=== PATIENT | male | born 1965 | race Caucasian/White ===

== ENCOUNTER 2019-01-18 16:45 | Inpatient (IN) | payer MEDICAID, OTHER ==
[~2019-01-18] VITALS: Ht 172.7 cm; Wt 68.3 kg
[2019-01-18] MEDS ORDERED: ASPIRIN 81 MG TABLET CHEW ONE (17:09)
--- NOTE | 2019-01-18 17:25 | NUR ---
Report from EDMUNDO Conrad. Patient resting comfortably. No needs.
[2019-01-18] MEDS ORDERED: ASPIRIN 81 MG TABLET CHEW PO ONE (17:30)
[2019-01-18 17:49] LABS: MEAN CORPUSCULAR HEMOGLOBIN 32.4 pg (27.5-34.5); MEAN CORPUSCULAR HGB CONC 34.1 g/dL (33.2-36.2); MEAN CORPUSCULAR VOLUME 94.8 fL (81-97); MEAN PLATELET VOLUME 7.5 fL (7.4-10.4); PLATELET COUNT 237 x10^3/uL (130-400); RED BLOOD COUNT 4.07 x10^6/uL (4.38-5.82); RED CELL DISTRIBUTION WIDTH 14.7 % (9.4-14.8)
[2019-01-18] MEDS ORDERED: KETOROLAC 30 MG/1 ML ONE (17:51)
[2019-01-18 17:56] LABS: ALANINE AMINOTRANSFERASE 40 U/L (12-78); ALBUMIN 2.5 g/dL (3.4-5.0); ANION GAP 8 mmol/L (5-15); CALCIUM 8.2 mg/dL (8.5-10.1); CHLORIDE 98 mmol/L (98-107); CREATININE 0.77 mg/dL (0.7-1.3)
[2019-01-18 18:00] LABS: ALKALINE PHOSPHATASE 117 U/L (45-117); BILIRUBIN,TOTAL 2.1 mg/dL (0.2-1.0); TOTAL PROTEIN 6.9 g/dL (6.4-8.2); TROPONIN I < 0.015 ng/mL (0.000-0.045)
[2019-01-18] MEDS ORDERED: SODIUM CHLORIDE 0.9% 1,000ML IVBOLUS ONE (18:00)
[2019-01-18] MEDS ORDERED: AZITHROMYCIN 500 MG in SODIUM CHLORIDE 0.9% 250 ML IV ONE (18:00)
[2019-01-18] MEDS ORDERED: KETOROLAC 30 MG/1 ML IM ONE (18:00)
[2019-01-18] MEDS ORDERED: CEFTRIAXONE PMX 1GM/50ML 50 ML IVPB ONE (18:00)
[2019-01-18] MEDS ORDERED: KETOROLAC 30 MG/1 ML IVPush ONE (18:00)
--- NOTE | 2019-01-18 18:00 | NUR ---
C/O pain. Toradol IM admin.
[2019-01-18 18:19] LABS: MD YES
[2019-01-18 18:22] LABS: BAND#(MANUAL) 2.96 x10^3/uL; BANDS%(MANUAL) 11 % (0-7); LYMPH#(MANUAL) 1.61 x10^3/uL (1-3.4); LYMPHS% (MANUAL) 6 % (22-44); MONOS#(MANUAL) 1.61 x10^3/uL (0.3-2.7); MONOS% (MANUAL) 6 % (2-9); SEG#(MANUAL) 20.71 x10^3/uL (1.8-6.8); SEGS% (MANUAL) 77 % (42-75)
[2019-01-18 18:23] LABS: <PLATELET ESTIMATE> ADEQUATE; POLYCHROMASIA 1+; TOXIC GRAN 1+
[2019-01-18 18:24] LABS: <PLT MORPHOLOGY> NORMAL PLT MORPH
[2019-01-18] MEDS ORDERED: CEFTRIAXONE PMX 1GM/50ML 50 ML ONE (18:29)
[2019-01-18] MEDS ORDERED: hydrALAzine 20 MG/ML, 1ML IVPush PRN (19:00)
[2019-01-18] MEDS: ENOXAPARIN 40 MG/0.4 ML SQ SCH ×2 (19:00→21:18)
[2019-01-18] MEDS ORDERED: CEFTRIAXONE PMX 2GM/50ML 50 ML IV SCH (19:00)
[2019-01-18] MEDS ORDERED: POTASSIUM CHLORIDE 20 MEQ TAB.ER.PRT PO ONE ×2 (19:00→22:00)
--- NOTE | 2019-01-18 19:05 | NUR ---
David conde. Plan is for admit. Awaiting room assignment.
--- NOTE | 2019-01-18 19:28 | NUR ---
Report to EDMUNDO Paredes.
[2019-01-18 20:02] VITALS: BP 106/70
[2019-01-18] MEDS ORDERED: CEFTRIAXONE PMX 1GM/50ML 50 ML IV ONE (21:00)
[2019-01-18] MEDS: ACETAMINOPHEN 325 MG TABLET PO PRN (21:17)
[2019-01-18] MEDS: SODIUM CHLORIDE 0.9% 1,000 ML IV SCH (21:20)
[2019-01-19 01:27] VITALS: BP 112/72
[2019-01-19 05:30] LABS: MEAN CORPUSCULAR HEMOGLOBIN 32.1 pg (27.5-34.5); MEAN CORPUSCULAR HGB CONC 33.3 g/dL (33.2-36.2); MEAN CORPUSCULAR VOLUME 96.6 fL (81-97); MEAN PLATELET VOLUME 7.8 fL (7.4-10.4); PLATELET COUNT 231 x10^3/uL (130-400); RED BLOOD COUNT 4.01 x10^6/uL (4.38-5.82); RED CELL DISTRIBUTION WIDTH 14.6 % (9.4-14.8)
[2019-01-19] MEDS: SODIUM CHLORIDE 0.9% 1,000 ML IV SCH ×2 (05:35→15:45)
[2019-01-19 05:55] LABS: ALANINE AMINOTRANSFERASE 29 U/L (12-78); ALBUMIN 1.9 g/dL (3.4-5.0); ANION GAP 8 mmol/L (5-15); CALCIUM 7.8 mg/dL (8.5-10.1); CHLORIDE 109 mmol/L (98-107); CREATININE 0.82 mg/dL (0.7-1.3)
[2019-01-19 05:58] LABS: ALKALINE PHOSPHATASE 127 U/L (45-117); BILIRUBIN,TOTAL 1.7 mg/dL (0.2-1.0); TOTAL PROTEIN 5.8 g/dL (6.4-8.2)
[2019-01-19 06:04] LABS: MD YES
[2019-01-19 06:05] LABS: BAND#(MANUAL) 0.71 x10^3/uL; BANDS%(MANUAL) 3 % (0-7); LYMPH#(MANUAL) 0.95 x10^3/uL (1-3.4); LYMPHS% (MANUAL) 4 % (22-44); MONOS#(MANUAL) 0.71 x10^3/uL (0.3-2.7); MONOS% (MANUAL) 3 % (2-9); SEG#(MANUAL) 21.33 x10^3/uL (1.8-6.8); SEGS% (MANUAL) 90 % (42-75)
[2019-01-19 06:06] LABS: <RBC MORPHOLOGY> NORMAL; TOXIC GRAN 1+
[2019-01-19 06:07] LABS: <PLATELET ESTIMATE> ADEQUATE; <PLT MORPHOLOGY> NORMAL PLT MORPH
[2019-01-19 07:05] VITALS: BP 103/66
[2019-01-19] MEDS: AZITHROMYCIN 250 MG TABLET PO SCH (09:42)
[2019-01-19] MEDS: ACETAMINOPHEN 325 MG TABLET PO PRN (09:42)
[2019-01-19 16:19] VITALS: BP 119/71
[2019-01-19] MEDS: FAMOTIDINE 20 MG TABLET PO SCH ×2 (17:43→21:31)
[2019-01-19] MEDS: CEFTRIAXONE PMX 2GM/50ML 50 ML IV SCH (17:46)
[2019-01-19] MEDS ORDERED: POTASSIUM CHLORIDE 40 MEQ in SODIUM CHLORIDE 0.9% 500 ML IV ONE (18:00)
[2019-01-19] MEDS ORDERED: ALUMINUM/MAG/SIMETHICONE 30 ML UDC PO ONE (18:00)
[2019-01-19] MEDS: NICOTINE 14MG/24 HR PATCH.TD24 TD SCH (18:12)
[2019-01-19] MEDS: ENOXAPARIN 40 MG/0.4 ML SQ SCH (19:00)
[2019-01-19 20:21] VITALS: BP 109/70
[2019-01-20 01:35] VITALS: BP 125/77
[2019-01-20 04:14] LABS: BASOPHILS # (AUTO) 0.02 x10^3/uL (0-0.1); BASOPHILS % (AUTO) 0 % (0-1); EOSINOPHILS # (AUTO) 0.06 x10^3/uL (0-0.4); EOSINOPHILS % (AUTO) 0 % (1-7); LYMPHOCYTES # (AUTO) 1.46 x10^3/uL (1-3.4); LYMPHOCYTES % (AUTO) 8 % (22-44); MD NO; MEAN CORPUSCULAR HEMOGLOBIN 31.5 pg (27.5-34.5); MEAN CORPUSCULAR HGB CONC 33.2 g/dL (33.2-36.2); MEAN CORPUSCULAR VOLUME 94.9 fL (81-97); MONOCYTES # (AUTO) 0.82 x10^3/uL (0.2-0.8); MONOCYTES % (AUTO) 5 % (2-9); NEUTROPHILS % (AUTO) 87 % (42-75); PLATELET COUNT 262 x10^3/uL (130-400); RED BLOOD COUNT 3.92 x10^6/uL (4.38-5.82); RED CELL DISTRIBUTION WIDTH 15.4 % (9.4-14.8)
[2019-01-20 04:32] LABS: CALCIUM 7.6 mg/dL (8.5-10.1); CHLORIDE 108 mmol/L (98-107)
[2019-01-20 04:35] LABS: ANION GAP 8 mmol/L (5-15); CREATININE 0.75 mg/dL (0.7-1.3)
[2019-01-20 08:27] VITALS: BP 125/73
[2019-01-20] MEDS: AZITHROMYCIN 250 MG TABLET PO SCH (10:05)
[2019-01-20] MEDS: SODIUM CHLORIDE 0.9% 1,000 ML IV SCH (10:05)
[2019-01-20] MEDS: FAMOTIDINE 20 MG TABLET PO SCH ×2 (10:05→20:00)
[2019-01-20] MEDS ORDERED: POTASSIUM CHLORIDE 40 MEQ in SODIUM CHLORIDE 0.9% 500 ML IV ONE (12:30)
[2019-01-20 15:50] VITALS: BP 122/74
[2019-01-20] MEDS: POTASSIUM CHLORIDE 20 MEQ TAB.ER.PRT PO SCH (17:26)
[2019-01-20] MEDS: ENOXAPARIN 40 MG/0.4 ML SQ SCH (17:35)
[2019-01-20] MEDS: NICOTINE 14MG/24 HR PATCH.TD24 TD SCH (17:43)
[2019-01-20 19:48] VITALS: BP 131/75
[2019-01-20] MEDS: CEFTRIAXONE PMX 2GM/50ML 50 ML IV SCH (19:55)
[2019-01-21 02:52] VITALS: BP 127/72
[2019-01-21 08:09] VITALS: BP 117/63
[2019-01-21] MEDS: POTASSIUM CHLORIDE 20 MEQ TAB.ER.PRT PO SCH ×2 (08:56→17:20)
[2019-01-21] MEDS: FAMOTIDINE 20 MG TABLET PO SCH ×2 (08:56→20:47)
[2019-01-21] MEDS: AZITHROMYCIN 250 MG TABLET PO SCH (08:57)
[2019-01-21 15:58] VITALS: BP 132/74
[2019-01-21] MEDS: NICOTINE 14MG/24 HR PATCH.TD24 TD SCH (17:20)
[2019-01-21] MEDS ORDERED: OMNIPAQUE 350 MG/ML, 100ML BOTTLE ONE (17:44)
[2019-01-21] MEDS: ENOXAPARIN 40 MG/0.4 ML SQ SCH (19:00)
[2019-01-21 19:35] VITALS: BP 130/76
[2019-01-21] MEDS: CEFTRIAXONE PMX 2GM/50ML 50 ML IV SCH (20:46)
[2019-01-22 01:06] VITALS: BP 122/78
[2019-01-22 06:32] LABS: MEAN CORPUSCULAR HGB CONC 33.9 g/dL (33.2-36.2); MEAN CORPUSCULAR VOLUME 94.3 fL (81-97); PLATELET COUNT 320 x10^3/uL (130-400); RED BLOOD COUNT 4.38 x10^6/uL (4.38-5.82); RED CELL DISTRIBUTION WIDTH 15.3 % (9.4-14.8)
[2019-01-22 06:41] LABS: ANION GAP 7 mmol/L (5-15); CALCIUM 8.4 mg/dL (8.5-10.1); CHLORIDE 105 mmol/L (98-107)
[2019-01-22 06:53] LABS: BASOPHILS # (AUTO) 0.04 x10^3/uL (0-0.1); BASOPHILS % (AUTO) 0 % (0-1); EOSINOPHILS # (AUTO) 0.17 x10^3/uL (0-0.4); EOSINOPHILS % (AUTO) 1 % (1-7); LYMPHOCYTES # (AUTO) 1.68 x10^3/uL (1-3.4); LYMPHOCYTES % (AUTO) 8 % (22-44); MD SCAN; MONOCYTES # (AUTO) 1.15 x10^3/uL (0.2-0.8); MONOCYTES % (AUTO) 5 % (2-9); NEUTROPHILS # (AUTO) 18.75 x10^3/uL (1.8-6.8); NEUTROPHILS % (AUTO) 86 % (42-75)
[2019-01-22 06:57] LABS: ALANINE AMINOTRANSFERASE 30 U/L (12-78); ALBUMIN 1.9 g/dL (3.4-5.0); ALKALINE PHOSPHATASE 113 U/L (45-117); BILIRUBIN,TOTAL 0.6 mg/dL (0.2-1.0); CREATININE 0.72 mg/dL (0.7-1.3)
[2019-01-22 07:50] VITALS: BP 112/78
[2019-01-22] MEDS: FAMOTIDINE 20 MG TABLET PO SCH ×2 (08:39→19:44)
[2019-01-22] MEDS: AZITHROMYCIN 250 MG TABLET PO SCH (08:39)
[2019-01-22 14:40] VITALS: BP 122/74
[2019-01-22] MEDS: ENOXAPARIN 40 MG/0.4 ML SQ SCH (18:11)
[2019-01-22] MEDS: NICOTINE 14MG/24 HR PATCH.TD24 TD SCH (18:12)
[2019-01-22 19:22] VITALS: BP 123/76
[2019-01-22] MEDS: CEFTRIAXONE PMX 2GM/50ML 50 ML IV SCH (19:44)
[2019-01-22 23:53] VITALS: BP 123/81
[2019-01-23 00:31] VITALS: BP 128/74
[2019-01-23 07:11] VITALS: BP 114/70
[2019-01-23] MEDS: AZITHROMYCIN 250 MG TABLET PO SCH (08:53)
[2019-01-23] MEDS: FAMOTIDINE 20 MG TABLET PO SCH ×2 (08:53→20:18)
[2019-01-23 14:06] VITALS: BP 117/71
[2019-01-23] MEDS: NICOTINE 14MG/24 HR PATCH.TD24 TD SCH (16:39)
[2019-01-23 19:38] VITALS: BP 110/70
[2019-01-23] MEDS: ENOXAPARIN 40 MG/0.4 ML SQ SCH (20:17)
[2019-01-23] MEDS: CEFTRIAXONE PMX 2GM/50ML 50 ML IV SCH (20:17)
[2019-01-24 01:29] VITALS: BP 99/60
[2019-01-24] MEDS: AZITHROMYCIN 250 MG TABLET PO SCH (08:06)
[2019-01-24] MEDS: FAMOTIDINE 20 MG TABLET PO SCH ×2 (08:06→20:01)
[2019-01-24 08:30] VITALS: BP 122/77
[2019-01-24] MEDS: CEFTRIAXONE PMX 2GM/50ML 50 ML IV SCH (10:04)
[2019-01-24 14:00] VITALS: BP 111/72
[2019-01-24] MEDS: NICOTINE 14MG/24 HR PATCH.TD24 TD SCH (17:07)
[2019-01-24 18:58] VITALS: BP 101/65
[2019-01-24] MEDS: ENOXAPARIN 40 MG/0.4 ML SQ SCH (20:01)
[2019-01-25 00:34] VITALS: BP 106/65
[2019-01-25 08:00] VITALS: BP 104/69
[2019-01-25] MEDS: AZITHROMYCIN 250 MG TABLET PO SCH (08:41)
[2019-01-25] MEDS: FAMOTIDINE 20 MG TABLET PO SCH (08:42)
[2019-01-25] MEDS: CEFTRIAXONE PMX 2GM/50ML 50 ML IV SCH (08:48)
[2019-01-25] MEDS ORDERED: LEVO750T26 PO (09:05)
[2019-01-25] MEDS ORDERED: LACT1CAP11 PO (09:05)
[2019-01-25 09:38] LABS: BASOPHILS # (AUTO) 0.02 x10^3/uL (0-0.1); BASOPHILS % (AUTO) 0 % (0-1); EOSINOPHILS # (AUTO) 0.16 x10^3/uL (0-0.4); EOSINOPHILS % (AUTO) 1 % (1-7); LYMPHOCYTES # (AUTO) 1.85 x10^3/uL (1-3.4); LYMPHOCYTES % (AUTO) 15 % (22-44); MD NO; MEAN CORPUSCULAR HEMOGLOBIN 31.7 pg (27.5-34.5); MEAN CORPUSCULAR HGB CONC 33.4 g/dL (33.2-36.2); MONOCYTES # (AUTO) 0.64 x10^3/uL (0.2-0.8); MONOCYTES % (AUTO) 5 % (2-9); NEUTROPHILS # (AUTO) 10.11 x10^3/uL (1.8-6.8); NEUTROPHILS % (AUTO) 79 % (42-75); PLATELET COUNT 577 x10^3/uL (130-400); RED BLOOD COUNT 4.44 x10^6/uL (4.38-5.82); RED CELL DISTRIBUTION WIDTH 14.9 % (9.4-14.8)
== END 2019-01-25 12:45 | disposition home or self-care (01) | DRG 871 ==
LOC: ED 19:34 → EDIP 19:36 → 4WST 20:11 → DCLOUNGE 01-25 12:40
PROVIDERS: ADMIT Family Medicine; ATTEND Family Medicine
DX: A41.9 Sepsis, unspecified organism (principal); J13 Pneumonia due to Streptococcus pneumoniae; E86.0 Dehydration; E87.6 Hypokalemia; F17.200 Nicotine dependence, unspecified, uncomplicated
CPT/HCPCS: 36415; 71046; 71260; 74178; 80048; 80053; 80074; 82962; 83605; 83735; 84145; 84484; 85025; 87040; 87077; 87181; 93005; 96365; 96372; 96375; 99285; G0378; J0456; J0696; J1650; J1885; J3480; Q9967; J7030; J7040; J7050